=== PATIENT | female | born 1945 | race Hispanic/Latino ===

== ENCOUNTER 2018-03-26 07:07 | Inpatient (IN) | payer MEDICARE ==
[~2018-03-26] VITALS: Ht 91.4 cm; Wt 67.2 kg
[~2018-03-26 07:07] MED LIST: ACET-2900 PO; ACET325T51 PO; AMLO10TA6 PO; ASPI-1005 PO; ASPI-1197 PO; ATOR10 PO; ATOR20TA PO; BIMA12.5OS OU; CLOP75TA32 PO; FLUC200T8 PO; FLUT16H NASAL; FLUT16H NS; FOLI0.8T2 PO; FOLI1CAP2 PO; GABA-529 PO; GABA-531 PO; LACT10SO8 PO; LACT10SO9 PO; LATA7.5D OP; LEVE500T19 PO; LEVE500T8 PO; LEVE750T51 PO; LISI-613 PO; Lactulose PO; MIDO10TA PO; NITR.4 SL; NITR0.4T50 SL; ONDA4TAB9 PO; PANT40TA PO; PANT40TA25 PO; PRED10TA23 PO; PRED10TA3 PO; SANTO TP; SERT50TA PO; SERT50TA12 PO; SEVE800T7 PO; TACR1CAP10 PO; TRAZ-185 PO; XALA2.5OS OD
[2018-03-26] MEDS ORDERED: IPRATROPIUM/ALBUTEROL SULFATE 3 ML SOLUTION IH ONE (07:25)
[2018-03-26 07:27] LABS: BASOPHILS % (AUTO) 0.6 % (0.0-5.0); EOSINOPHILS % (AUTO) 0.4 % (0.0-8.0); HEMATOCRIT 27.4 % (36-48); LYMPHOCYTES % (AUTO) 18.1 % (21.0-51.0); MEAN CORPUSCULAR HEMOGLOBIN 31.2 pg (27.0-33.0); MEAN CORPUSCULAR HGB CONC 32.4 g/dL (32.0-36.0); MEAN CORPUSCULAR VOLUME 96.2 fL (79-99); MONOCYTES % (AUTO) 4.9 % (3.0-13.0); PLATELET COUNT (AUTO) 173 K/uL (130-400); RED BLOOD CELL COUNT(AUTO) 2.85 MIL/uL (4.00-5.50); RED CELL DISTRIBUTION WIDTH 15.5 % (11.0-15.5); WHITE BLOOD COUNT (AUTO) 6.4 K/uL (4.8-10.8)
[2018-03-26 07:35] LABS: CREATININE 7.2 mg/dL (0.5-1.5); POTASSIUM 5.1 mmol/L (3.5-5.1)
[2018-03-26 07:51] LABS: ALBUMIN 2.5 g/dL (3.5-5.0); BILIRUBIN,TOTAL 0.6 mg/dL (0.2-1.0); CREATINE KINASE MB 0.9 ng/mL (0.5-3.6); TOTAL PROTEIN, SERUM 6.5 g/dL (6.0-8.3)
[2018-03-26] MEDS ORDERED: MIDODRINE HCL 5 MG TABLET ONE ×2 (09:09→16:37)
[2018-03-26] MEDS ORDERED: ACETAMINOPHEN 325 MG TAB ONE (09:11)
[2018-03-26] MEDS ORDERED: VANCOMYCIN 1.5 GM in SODIUM CHLORIDE 0.9% 250 ML IV SCH (09:15)
[2018-03-26 09:40] VITALS: BP 74/41
[2018-03-26] MEDS ORDERED: VANCOMYCIN PROTOCOL PER PHARMACY IV SCH (09:45)
[2018-03-26] MEDS: LEVOFLOXACIN 500 MG/D5W 100 ML 100 ML IV SCH (10:59)
[2018-03-26 12:00] VITALS: BP 82/43
[2018-03-26] MEDS ORDERED: 0.9% SODIUM CHLORIDE 250 ML IV BAG IV PRN (12:30)
[2018-03-26] MEDS ORDERED: HEPARIN SODIUM 5000UNIT/ML 1ML VIAL IJ PRN (12:30)
[2018-03-26] MEDS ORDERED: ALBUMIN (HUMAN) 25% 100 ML IV PRN (12:30)
[2018-03-26] MEDS ORDERED: SODIUM CHLORIDE 0.9% 1000ML 1,000 ML IV PRN (12:30)
[2018-03-26] MEDS: HYDROCORTISONE SOD SUCCINATE 100 MG/2 ML VIAL IV SCH ×2 (15:11→21:07)
[2018-03-26] MEDS ORDERED: COMPOUND IV REFRIGERATED 1 EACH IVSOLN MISC PRN (15:15)
[2018-03-26] MEDS ORDERED: SEVE800T7 PO (15:41)
[2018-03-26] MEDS ORDERED: MIDO10TA PO ×2 (15:41)
[2018-03-26] MEDS ORDERED: LACT10SO9 PO (15:41)
[2018-03-26] MEDS ORDERED: GABA-529 PO (15:41)
[2018-03-26] MEDS ORDERED: [UNRECOGNIZED DRUG - CODE] PO (15:41)
[2018-03-26] MEDS ORDERED: ONDA4TAB7 PO (15:41)
[2018-03-26] MEDS ORDERED: LOPE2CAP PO (15:41)
[2018-03-26 16:00] VITALS: BP 91/31
[2018-03-26] MEDS ORDERED: NITROGLYCERIN 0.4 MG SL TAB SL PRN (16:00)
[2018-03-26] MEDS: ACETAMINOPHEN 325 MG TAB PO SCH ×2 (16:00→21:04)
[2018-03-26] MEDS ORDERED: LACTULOSE 20 GM/30 ML UDCUP PO PRN (16:00)
[2018-03-26] MEDS ORDERED: LOPERAMIDE HCL 2 MG CAP PO PRN (16:15)
[2018-03-26] MEDS ORDERED: ONDANSETRON ODT 4 MG TAB PO PRN (16:15)
[2018-03-26] MEDS: INSULIN HUMULIN R 100 UNIT/ML 3ML SQ SCH ×2 (16:30→20:57)
[2018-03-26] MEDS: SEVELAMER HCL 800 MG TABLET PO SCH (17:45)
[2018-03-26 19:36] VITALS: BP 91/56
[2018-03-26] MEDS: TRAZODONE HCL 50 MG TAB PO SCH (19:59)
[2018-03-26] MEDS ORDERED: EPOETIN ALFA 10,000 UNIT/ML VIAL SQ ONE (21:00)
[2018-03-26] MEDS ORDERED: MIDODRINE HCL 5 MG TABLET PO PRN (21:00)
[2018-03-26] MEDS: LATANOPROST 2.5 ML DROPS OP SCH (21:00)
[2018-03-26] MEDS ORDERED: MIDODRINE HCL 5 MG TABLET PO SCH (21:00)
[2018-03-26] MEDS: LEVETIRACETAM 500 MG TABLET PO SCH (21:04)
[2018-03-26] MEDS: ATORVASTATIN CALCIUM 10 MG TABLET PO SCH (21:04)
[2018-03-26] MEDS: TACROLIMUS 1 MG CAPSULE PO SCH (21:07)
[2018-03-26 23:42] VITALS: BP 115/55
[2018-03-27] MEDS: ONDANSETRON HCL MDV 20ML 2 MG/ML VIAL IVP PRN (02:28)
[2018-03-27 04:05] VITALS: BP 119/53
[2018-03-27 04:06] LABS: HEMATOCRIT 24.7 % (36-48); MEAN CORPUSCULAR HEMOGLOBIN 31.8 pg (27.0-33.0); MEAN CORPUSCULAR HGB CONC 33.3 g/dL (32.0-36.0); MEAN CORPUSCULAR VOLUME 95.5 fL (79-99); PLATELET COUNT (AUTO) 147 K/uL (130-400); RED BLOOD CELL COUNT(AUTO) 2.59 MIL/uL (4.00-5.50); RED CELL DISTRIBUTION WIDTH 15.5 % (11.0-15.5); WHITE BLOOD COUNT (AUTO) 4.3 K/uL (4.8-10.8)
[2018-03-27 04:24] LABS: BAND NEUTROPHILS % (MANUAL) 18 % (0-2); LYMPHOCYTES % (MANUAL) 14 % (22-44); MAN.DIFF COMMENT-IMPRESSION MANUAL DIFFERENTIAL; MONOCYTES % (MANUAL) 8 % (2-9); PLATELET MORPHOLOGY COMMENT ADEQUATE; SEGMENTED NEUTROPHILS % 60 % (40-70)
[2018-03-27 04:31] LABS: ALBUMIN 2.5 g/dL (3.5-5.0); BILIRUBIN,TOTAL 0.6 mg/dL (0.2-1.0); CREATININE 4.3 mg/dL (0.5-1.5); MAGNESIUM 1.9 mg/dL (1.80-2.40); PHOSPHORUS 3.5 mg/dL (2.5-4.9); POTASSIUM 4.4 mmol/L (3.5-5.1)
[2018-03-27] MEDS: HYDROCORTISONE SOD SUCCINATE 100 MG/2 ML VIAL IV SCH ×3 (04:59→20:44)
[2018-03-27] MEDS: ACETAMINOPHEN 325 MG TAB PO SCH ×4 (04:59→20:45)
[2018-03-27] MEDS: INSULIN HUMULIN R 100 UNIT/ML 3ML SQ SCH ×4 (06:42→20:54)
[2018-03-27 07:30] LABS: HEPATITIS Bs ANTIGEN SCREEN P Negative (Negative)
[2018-03-27 08:04] VITALS: BP 134/58
[2018-03-27] MEDS: [UNRECOGNIZED DRUG - OTHER] PO SCH (09:00)
[2018-03-27] MEDS: FLUTICASONE PROPIONATE 50MCG/SPRAY 16 GM BOTTLE NS SCH (09:00)
[2018-03-27] MEDS ORDERED: PANTOPRAZOLE SODIUM 40 MG TABLET.DR PO SCH (09:00)
[2018-03-27] MEDS: FOLIC ACID/VITAMIN B COMP W-C 1 MG CAPSULE PO SCH (10:46)
[2018-03-27] MEDS: SERTRALINE HCL 50 MG TABLET PO SCH (10:47)
[2018-03-27] MEDS: PREDNISONE 10 MG TABLET PO SCH (10:47)
[2018-03-27] MEDS: FLUCONAZOLE 100 MG TAB PO SCH (10:47)
[2018-03-27] MEDS: SEVELAMER HCL 800 MG TABLET PO SCH ×3 (10:47→17:00)
[2018-03-27] MEDS: LEVETIRACETAM 500 MG TABLET PO SCH ×2 (10:47→20:46)
[2018-03-27] MEDS: ASPIRIN 81MG TAB.CHEW PO SCH (10:47)
[2018-03-27] MEDS: CLOPIDOGREL BISULFATE 75 MG TAB PO SCH (10:47)
[2018-03-27] MEDS: PANTOPRAZOLE SODIUM 40 MG TABLET.DR PO SCH (10:47)
[2018-03-27] MEDS: TACROLIMUS 1 MG CAPSULE PO SCH ×2 (10:47→20:46)
[2018-03-27 12:02] VITALS: BP 116/52
[2018-03-27 16:02] VITALS: BP 147/70
[2018-03-27 20:02] VITALS: BP 118/55
[2018-03-27] MEDS: TRAZODONE HCL 50 MG TAB PO SCH (20:46)
[2018-03-27] MEDS: ATORVASTATIN CALCIUM 10 MG TABLET PO SCH (20:46)
[2018-03-27] MEDS: LATANOPROST 2.5 ML DROPS OP SCH (20:48)
[2018-03-27 23:55] VITALS: BP 138/49
[2018-03-28 03:39] VITALS: BP 154/58
[2018-03-28] MEDS: ACETAMINOPHEN 325 MG TAB PO SCH ×4 (03:51→21:49)
[2018-03-28] MEDS: INSULIN HUMULIN R 100 UNIT/ML 3ML SQ SCH ×4 (05:34→21:00)
[2018-03-28] MEDS: HYDROCORTISONE SOD SUCCINATE 100 MG/2 ML VIAL IV SCH ×3 (05:39→21:43)
[2018-03-28 07:56] VITALS: BP 101/32
[2018-03-28] MEDS: FLUTICASONE PROPIONATE 50MCG/SPRAY 16 GM BOTTLE NS SCH (09:00)
[2018-03-28] MEDS: [UNRECOGNIZED DRUG - OTHER] PO SCH (09:00)
[2018-03-28] MEDS ORDERED: GABAPENTIN 100 MG CAPSULE PO SCH (09:00)
[2018-03-28] MEDS: CLOPIDOGREL BISULFATE 75 MG TAB PO SCH (09:14)
[2018-03-28] MEDS: FLUCONAZOLE 100 MG TAB PO SCH (09:14)
[2018-03-28] MEDS: SERTRALINE HCL 50 MG TABLET PO SCH (09:14)
[2018-03-28] MEDS: ASPIRIN 81MG TAB.CHEW PO SCH (09:14)
[2018-03-28] MEDS: MIDODRINE HCL 5 MG TABLET PO SCH (09:14)
[2018-03-28] MEDS: FOLIC ACID/VITAMIN B COMP W-C 1 MG CAPSULE PO SCH (09:14)
[2018-03-28] MEDS: PANTOPRAZOLE SODIUM 40 MG TABLET.DR PO SCH (09:15)
[2018-03-28] MEDS: LEVOFLOXACIN 500 MG/D5W 100 ML 100 ML IV SCH (09:15)
[2018-03-28] MEDS: LEVETIRACETAM 500 MG TABLET PO SCH ×2 (09:15→21:43)
[2018-03-28] MEDS: PREDNISONE 10 MG TABLET PO SCH (09:15)
[2018-03-28] MEDS: TACROLIMUS 1 MG CAPSULE PO SCH ×2 (09:15→21:44)
[2018-03-28] MEDS: SEVELAMER HCL 800 MG TABLET PO SCH ×3 (09:15→16:24)
[2018-03-28 11:37] VITALS: BP 113/39
[2018-03-28 16:21] VITALS: BP 94/44
[2018-03-28 19:00] VITALS: BP 125/50
[2018-03-28] MEDS: LATANOPROST 2.5 ML DROPS OP SCH (21:00)
[2018-03-28] MEDS: TRAZODONE HCL 50 MG TAB PO SCH (21:43)
[2018-03-28] MEDS: GABAPENTIN 100 MG CAPSULE PO SCH (21:43)
[2018-03-28] MEDS: ATORVASTATIN CALCIUM 10 MG TABLET PO SCH (21:43)
[2018-03-28 23:00] VITALS: BP 138/61
[2018-03-29 03:00] VITALS: BP 134/55
[2018-03-29 04:00] LABS: MEAN CORPUSCULAR HEMOGLOBIN 31.4 pg (27.0-33.0); MEAN CORPUSCULAR HGB CONC 32.6 g/dL (32.0-36.0); MEAN CORPUSCULAR VOLUME 96.2 fL (79-99); NUCLEATED RED BLOOD CELLS 0.1 % (0.0-0.19); PLATELET COUNT (AUTO) 146 K/uL (130-400); RED CELL DISTRIBUTION WIDTH 15.8 % (11.0-15.5)
[2018-03-29 04:11] LABS: CREATININE 3.7 mg/dL (0.5-1.5); PHOSPHORUS 2.4 mg/dL (2.5-4.9); POTASSIUM 3.8 mmol/L (3.5-5.1)
[2018-03-29] MEDS: ACETAMINOPHEN 325 MG TAB PO SCH ×4 (04:40→21:27)
[2018-03-29] MEDS: HYDROCORTISONE SOD SUCCINATE 100 MG/2 ML VIAL IV SCH (06:05)
[2018-03-29] MEDS: INSULIN HUMULIN R 100 UNIT/ML 3ML SQ SCH ×4 (06:29→20:48)
[2018-03-29 07:45] VITALS: BP 131/56
[2018-03-29] MEDS: FLUTICASONE PROPIONATE 50MCG/SPRAY 16 GM BOTTLE NS SCH (09:00)
[2018-03-29] MEDS: [UNRECOGNIZED DRUG - OTHER] PO SCH (09:00)
[2018-03-29] MEDS: TACROLIMUS 1 MG CAPSULE PO SCH ×2 (09:38→21:28)
[2018-03-29] MEDS: FOLIC ACID/VITAMIN B COMP W-C 1 MG CAPSULE PO SCH (09:38)
[2018-03-29] MEDS: FLUCONAZOLE 100 MG TAB PO SCH (09:38)
[2018-03-29] MEDS: PANTOPRAZOLE SODIUM 40 MG TABLET.DR PO SCH (09:38)
[2018-03-29] MEDS: CLOPIDOGREL BISULFATE 75 MG TAB PO SCH (09:38)
[2018-03-29] MEDS: ASPIRIN 81MG TAB.CHEW PO SCH (09:38)
[2018-03-29] MEDS: LEVETIRACETAM 500 MG TABLET PO SCH ×2 (09:38→21:27)
[2018-03-29] MEDS: PREDNISONE 10 MG TABLET PO SCH (09:39)
[2018-03-29] MEDS: SERTRALINE HCL 50 MG TABLET PO SCH (09:39)
[2018-03-29] MEDS: SEVELAMER HCL 800 MG TABLET PO SCH ×2 (09:41→11:57)
[2018-03-29 11:12] VITALS: BP 140/62
[2018-03-29 16:38] VITALS: BP 118/73
[2018-03-29 19:55] VITALS: BP 111/47
[2018-03-29] MEDS: TRAZODONE HCL 50 MG TAB PO SCH (21:27)
[2018-03-29] MEDS: ATORVASTATIN CALCIUM 10 MG TABLET PO SCH (21:28)
[2018-03-29] MEDS: LATANOPROST 2.5 ML DROPS OP SCH (21:29)
[2018-03-29 23:35] VITALS: BP 105/51
[2018-03-30] MEDS: ACETAMINOPHEN 325 MG TAB PO SCH ×2 (03:07→10:00)
[2018-03-30 04:00] LABS: MEAN CORPUSCULAR HEMOGLOBIN 31.4 pg (27.0-33.0); MEAN CORPUSCULAR HGB CONC 32.8 g/dL (32.0-36.0); NUCLEATED RED BLOOD CELLS 0.3 % (0.0-0.19); PLATELET COUNT (AUTO) 142 K/uL (130-400); RED CELL DISTRIBUTION WIDTH 15.7 % (11.0-15.5); WHITE BLOOD COUNT (AUTO) 5.9 K/uL (4.8-10.8)
[2018-03-30 04:21] LABS: ALBUMIN 2.4 g/dL (3.5-5.0); BILIRUBIN,TOTAL 0.5 mg/dL (0.2-1.0); CREATININE 4.8 mg/dL (0.5-1.5); MAGNESIUM 1.9 mg/dL (1.80-2.40); PHOSPHORUS 0.9 mg/dL (2.5-4.9); POTASSIUM 3.6 mmol/L (3.5-5.1); TOTAL PROTEIN, SERUM 5.8 g/dL (6.0-8.3)
[2018-03-30 04:23] VITALS: BP 106/52
[2018-03-30] MEDS: ONDANSETRON HCL MDV 20ML 2 MG/ML VIAL IVP PRN (05:48)
[2018-03-30 07:54] VITALS: BP 84/36
[2018-03-30] MEDS: SERTRALINE HCL 50 MG TABLET PO SCH (09:00)
[2018-03-30] MEDS: ASPIRIN 81MG TAB.CHEW PO SCH (09:00)
[2018-03-30] MEDS: LEVETIRACETAM 500 MG TABLET PO SCH ×2 (09:00→20:41)
[2018-03-30] MEDS: [UNRECOGNIZED DRUG - OTHER] PO SCH (09:00)
[2018-03-30] MEDS: PANTOPRAZOLE SODIUM 40 MG TABLET.DR PO SCH (09:00)
[2018-03-30] MEDS: FOLIC ACID/VITAMIN B COMP W-C 1 MG CAPSULE PO SCH (09:00)
[2018-03-30] MEDS: FLUTICASONE PROPIONATE 50MCG/SPRAY 16 GM BOTTLE NS SCH (09:00)
[2018-03-30] MEDS: CLOPIDOGREL BISULFATE 75 MG TAB PO SCH (09:00)
[2018-03-30] MEDS: PREDNISONE 10 MG TABLET PO SCH (09:00)
[2018-03-30] MEDS: TACROLIMUS 1 MG CAPSULE PO SCH ×2 (09:00→20:40)
[2018-03-30] MEDS: FLUCONAZOLE 100 MG TAB PO SCH (09:00)
[2018-03-30] MEDS: LEVOFLOXACIN 500 MG/D5W 100 ML 100 ML IV SCH (10:00)
[2018-03-30 10:01] VITALS: BP 83/55
[2018-03-30 11:08] VITALS: BP 104/42
[2018-03-30] MEDS ORDERED: HYDROCORTISONE SOD SUCCINATE 100 MG/2 ML VIAL ONE (11:11)
[2018-03-30] MEDS: HYDROCORTISONE SOD SUCCINATE 100 MG/2 ML VIAL IV SCH ×2 (11:23→20:40)
[2018-03-30] MEDS: INSULIN HUMULIN R 100 UNIT/ML 3ML SQ SCH ×3 (11:30→22:55)
[2018-03-30] MEDS ORDERED: GENTAMICIN 80 MG/NS 100 ML PB 100 ML IV ONE (12:25)
[2018-03-30 16:18] VITALS: BP 107/43
[2018-03-30 19:37] VITALS: BP 82/40
[2018-03-30] MEDS: ATORVASTATIN CALCIUM 10 MG TABLET PO SCH (20:40)
[2018-03-30] MEDS: LATANOPROST 2.5 ML DROPS OP SCH (21:00)
[2018-03-30] MEDS: EPOETIN ALFA 10,000 UNIT/ML VIAL SQ SCH (21:00)
[2018-03-30] MEDS: TRAZODONE HCL 50 MG TAB PO SCH (23:48)
[2018-03-31] VITALS (7 sets, daily range): BP systolic 91–148; BP diastolic 37–68
[2018-03-31] MEDS: HYDROCORTISONE SOD SUCCINATE 100 MG/2 ML VIAL IV SCH ×3 (03:07→20:34)
[2018-03-31 04:01] LABS: HEMATOCRIT 26.7 % (36-48); MEAN CORPUSCULAR HEMOGLOBIN 30.4 pg (27.0-33.0); MEAN CORPUSCULAR HGB CONC 31.8 g/dL (32.0-36.0); MEAN CORPUSCULAR VOLUME 95.5 fL (79-99); NUCLEATED RED BLOOD CELLS 0.2 % (0.0-0.19); PLATELET COUNT (AUTO) 135 K/uL (130-400); RED BLOOD CELL COUNT(AUTO) 2.79 MIL/uL (4.00-5.50); RED CELL DISTRIBUTION WIDTH 16.7 % (11.0-15.5); WHITE BLOOD COUNT (AUTO) 9.7 K/uL (4.8-10.8)
[2018-03-31 04:11] LABS: CREATININE 5.7 mg/dL (0.5-1.5); PHOSPHORUS 1.7 mg/dL (2.5-4.9); POTASSIUM 4.5 mmol/L (3.5-5.1)
[2018-03-31] MEDS: INSULIN HUMULIN R 100 UNIT/ML 3ML SQ SCH ×4 (06:29→22:08)
[2018-03-31] MEDS: FLUTICASONE PROPIONATE 50MCG/SPRAY 16 GM BOTTLE NS SCH (09:00)
[2018-03-31] MEDS: [UNRECOGNIZED DRUG - OTHER] PO SCH (09:00)
[2018-03-31] MEDS: PANTOPRAZOLE SODIUM 40 MG TABLET.DR PO SCH (09:56)
[2018-03-31] MEDS: MIDODRINE HCL 5 MG TABLET PO SCH (09:56)
[2018-03-31] MEDS: ASPIRIN 81MG TAB.CHEW PO SCH (09:56)
[2018-03-31] MEDS: FLUCONAZOLE 100 MG TAB PO SCH (09:56)
[2018-03-31] MEDS: SERTRALINE HCL 50 MG TABLET PO SCH (09:56)
[2018-03-31] MEDS: FOLIC ACID/VITAMIN B COMP W-C 1 MG CAPSULE PO SCH (09:57)
[2018-03-31] MEDS: TACROLIMUS 1 MG CAPSULE PO SCH ×2 (09:57→20:33)
[2018-03-31] MEDS: LEVETIRACETAM 500 MG TABLET PO SCH ×2 (09:57→20:34)
[2018-03-31] MEDS: CLOPIDOGREL BISULFATE 75 MG TAB PO SCH (09:57)
[2018-03-31] MEDS ORDERED: VANCOMYCIN 1.5 GM in SODIUM CHLORIDE 0.9% 250 ML IV ONE (10:00)
[2018-03-31] MEDS: CEFEPIME HCL 1 GM VIAL IVP SCH (12:03)
[2018-03-31] MEDS: ACETAMINOPHEN 325 MG TAB PO PRN (18:13)
[2018-03-31] MEDS: ATORVASTATIN CALCIUM 10 MG TABLET PO SCH (20:33)
[2018-03-31] MEDS: TRAZODONE HCL 50 MG TAB PO SCH (20:34)
[2018-03-31] MEDS: GABAPENTIN 100 MG CAPSULE PO SCH (20:34)
[2018-03-31] MEDS: EPOETIN ALFA 10,000 UNIT/ML VIAL SQ SCH (21:00)
[2018-03-31] MEDS: LATANOPROST 2.5 ML DROPS OP SCH (21:37)
[2018-04-01] MEDS: HYDROCORTISONE SOD SUCCINATE 100 MG/2 ML VIAL IV SCH ×3 (03:17→22:17)
[2018-04-01 03:52] VITALS: BP 141/68
[2018-04-01 03:56] LABS: HEMATOCRIT 26.7 % (36-48); MEAN CORPUSCULAR HEMOGLOBIN 31.1 pg (27.0-33.0); MEAN CORPUSCULAR HGB CONC 32.2 g/dL (32.0-36.0); MEAN CORPUSCULAR VOLUME 96.6 fL (79-99); NUCLEATED RED BLOOD CELLS 0.1 % (0.0-0.19); PLATELET COUNT (AUTO) 140 K/uL (130-400); RED BLOOD CELL COUNT(AUTO) 2.77 MIL/uL (4.00-5.50); RED CELL DISTRIBUTION WIDTH 16.3 % (11.0-15.5); WHITE BLOOD COUNT (AUTO) 12.2 K/uL (4.8-10.8)
[2018-04-01 04:11] LABS: CREATININE 3.5 mg/dL (0.5-1.5); POTASSIUM 3.9 mmol/L (3.5-5.1)
[2018-04-01] MEDS: INSULIN HUMULIN R 100 UNIT/ML 3ML SQ SCH ×5 (06:20→22:30)
[2018-04-01 08:37] VITALS: BP 141/57
[2018-04-01] MEDS: FLUTICASONE PROPIONATE 50MCG/SPRAY 16 GM BOTTLE NS SCH (09:00)
[2018-04-01] MEDS: [UNRECOGNIZED DRUG - OTHER] PO SCH (09:00)
[2018-04-01] MEDS: TACROLIMUS 1 MG CAPSULE PO SCH ×2 (09:08→22:18)
[2018-04-01] MEDS: CLOPIDOGREL BISULFATE 75 MG TAB PO SCH (09:08)
[2018-04-01] MEDS: SERTRALINE HCL 50 MG TABLET PO SCH (09:08)
[2018-04-01] MEDS: FOLIC ACID/VITAMIN B COMP W-C 1 MG CAPSULE PO SCH (09:08)
[2018-04-01] MEDS: FLUCONAZOLE 100 MG TAB PO SCH (09:08)
[2018-04-01] MEDS: LEVETIRACETAM 500 MG TABLET PO SCH ×2 (09:08→22:16)
[2018-04-01] MEDS: ASPIRIN 81MG TAB.CHEW PO SCH (09:08)
[2018-04-01] MEDS: LEVOFLOXACIN 500 MG/D5W 100 ML 100 ML IV SCH (09:08)
[2018-04-01] MEDS: PANTOPRAZOLE SODIUM 40 MG TABLET.DR PO SCH (09:08)
[2018-04-01] MEDS: CEFEPIME HCL 1 GM VIAL IVP SCH (09:09)
[2018-04-01 11:28] VITALS: BP 125/45
[2018-04-01 16:06] VITALS: BP 137/55
[2018-04-01 19:51] VITALS: BP 140/57
[2018-04-01] MEDS: LATANOPROST 2.5 ML DROPS OP SCH (21:00)
[2018-04-01] MEDS: TRAZODONE HCL 50 MG TAB PO SCH (22:16)
[2018-04-01] MEDS: ATORVASTATIN CALCIUM 10 MG TABLET PO SCH (22:16)
[2018-04-01] MEDS: ACETAMINOPHEN 325 MG TAB PO PRN (22:20)
[2018-04-01 23:04] VITALS: BP 113/46
[2018-04-02 03:03] VITALS: BP 126/52
[2018-04-02 03:52] LABS: HEMATOCRIT 26.2 % (36-48); MEAN CORPUSCULAR HEMOGLOBIN 30.3 pg (27.0-33.0); MEAN CORPUSCULAR HGB CONC 31.7 g/dL (32.0-36.0); MEAN CORPUSCULAR VOLUME 95.4 fL (79-99); NUCLEATED RED BLOOD CELLS 0.1 % (0.0-0.19); PLATELET COUNT (AUTO) 97 K/uL (130-400); RED BLOOD CELL COUNT(AUTO) 2.74 MIL/uL (4.00-5.50); RED CELL DISTRIBUTION WIDTH 16.4 % (11.0-15.5); WHITE BLOOD COUNT (AUTO) 11.2 K/uL (4.8-10.8)
[2018-04-02 04:13] LABS: CREATININE 4.4 mg/dL (0.5-1.5); POTASSIUM 4.8 mmol/L (3.5-5.1)
[2018-04-02] MEDS: HYDROCORTISONE SOD SUCCINATE 100 MG/2 ML VIAL IV SCH ×3 (04:36→21:29)
[2018-04-02] MEDS: INSULIN HUMULIN R 100 UNIT/ML 3ML SQ SCH ×4 (06:12→21:00)
[2018-04-02 08:24] VITALS: BP 137/67
[2018-04-02] MEDS: MIDODRINE HCL 5 MG TABLET PO SCH (09:00)
[2018-04-02] MEDS: SERTRALINE HCL 50 MG TABLET PO SCH (09:00)
[2018-04-02] MEDS: [UNRECOGNIZED DRUG - OTHER] PO SCH (09:00)
[2018-04-02] MEDS ORDERED: VANCOMYCIN 1GM+NS 250ML 250 ML IV SCH (09:00)
[2018-04-02] MEDS: FLUCONAZOLE 100 MG TAB PO SCH (09:00)
[2018-04-02] MEDS: PANTOPRAZOLE SODIUM 40 MG TABLET.DR PO SCH (09:00)
[2018-04-02] MEDS: FOLIC ACID/VITAMIN B COMP W-C 1 MG CAPSULE PO SCH (09:00)
[2018-04-02] MEDS: CLOPIDOGREL BISULFATE 75 MG TAB PO SCH (09:00)
[2018-04-02] MEDS: ASPIRIN 81MG TAB.CHEW PO SCH (09:00)
[2018-04-02] MEDS: LEVETIRACETAM 500 MG TABLET PO SCH ×2 (09:00→21:29)
[2018-04-02] MEDS: TACROLIMUS 1 MG CAPSULE PO SCH ×2 (09:00→21:29)
[2018-04-02] MEDS: CEFEPIME HCL 1 GM VIAL IVP SCH (09:00)
[2018-04-02] MEDS: FLUTICASONE PROPIONATE 50MCG/SPRAY 16 GM BOTTLE NS SCH (10:10)
[2018-04-02 12:00] VITALS: BP 137/57
[2018-04-02] MEDS ORDERED: EPOETIN ALFA 10,000 UNIT/ML VIAL SQ SCH (14:24)
[2018-04-02 16:00] VITALS: BP 95/41
[2018-04-02] MEDS: VANCOMYCIN 1GM+NS 250ML 250 ML IV SCH (18:14)
[2018-04-02 19:17] VITALS: BP 121/46
[2018-04-02] MEDS: ATORVASTATIN CALCIUM 10 MG TABLET PO SCH (21:30)
[2018-04-02] MEDS: GABAPENTIN 100 MG CAPSULE PO SCH (21:30)
[2018-04-02] MEDS: TRAZODONE HCL 50 MG TAB PO SCH (21:34)
[2018-04-02] MEDS: LATANOPROST 2.5 ML DROPS OP SCH (21:42)
[2018-04-02 22:58] VITALS: BP 121/50
[2018-04-03 03:27] VITALS: BP 149/61
[2018-04-03 04:01] LABS: HEMATOCRIT 26.5 % (36-48); MEAN CORPUSCULAR HEMOGLOBIN 30.5 pg (27.0-33.0); MEAN CORPUSCULAR HGB CONC 31.7 g/dL (32.0-36.0); MEAN CORPUSCULAR VOLUME 96.1 fL (79-99); PLATELET COUNT (AUTO) 106 K/uL (130-400); RED BLOOD CELL COUNT(AUTO) 2.76 MIL/uL (4.00-5.50); RED CELL DISTRIBUTION WIDTH 16.4 % (11.0-15.5)
[2018-04-03 04:12] LABS: ALBUMIN 2.1 g/dL (3.5-5.0); BILIRUBIN,TOTAL 0.5 mg/dL (0.2-1.0); CREATININE 2.8 mg/dL (0.5-1.5); MAGNESIUM 1.9 mg/dL (1.80-2.40); POTASSIUM 4.5 mmol/L (3.5-5.1); TOTAL PROTEIN, SERUM 5.3 g/dL (6.0-8.3)
[2018-04-03] MEDS: HYDROCORTISONE SOD SUCCINATE 100 MG/2 ML VIAL IV SCH ×3 (04:55→20:59)
[2018-04-03] MEDS: INSULIN HUMULIN R 100 UNIT/ML 3ML SQ SCH ×4 (06:25→21:00)
[2018-04-03 08:00] VITALS: BP 153/59
[2018-04-03] MEDS: ACETAMINOPHEN 325 MG TAB PO PRN (08:06)
[2018-04-03] MEDS: [UNRECOGNIZED DRUG - OTHER] PO SCH (09:00)
[2018-04-03] MEDS: FLUTICASONE PROPIONATE 50MCG/SPRAY 16 GM BOTTLE NS SCH (09:00)
[2018-04-03] MEDS: PANTOPRAZOLE SODIUM 40 MG TABLET.DR PO SCH (09:26)
[2018-04-03] MEDS: LEVETIRACETAM 500 MG TABLET PO SCH ×2 (09:26→20:59)
[2018-04-03] MEDS: CEFEPIME HCL 1 GM VIAL IVP SCH (09:26)
[2018-04-03] MEDS: TACROLIMUS 1 MG CAPSULE PO SCH ×2 (09:27→20:58)
[2018-04-03] MEDS: FLUCONAZOLE 100 MG TAB PO SCH (09:27)
[2018-04-03] MEDS: FOLIC ACID/VITAMIN B COMP W-C 1 MG CAPSULE PO SCH (09:27)
[2018-04-03] MEDS: ASPIRIN 81MG TAB.CHEW PO SCH (09:27)
[2018-04-03] MEDS: CLOPIDOGREL BISULFATE 75 MG TAB PO SCH (09:27)
[2018-04-03] MEDS: SERTRALINE HCL 50 MG TABLET PO SCH (09:28)
[2018-04-03] MEDS: LEVOFLOXACIN 500 MG/D5W 100 ML 100 ML IV SCH (09:38)
[2018-04-03 12:00] VITALS: BP 133/59
[2018-04-03 16:00] VITALS: BP 149/63
[2018-04-03 19:29] VITALS: BP 155/61
[2018-04-03] MEDS: ATORVASTATIN CALCIUM 10 MG TABLET PO SCH (20:59)
[2018-04-03] MEDS: TRAZODONE HCL 50 MG TAB PO SCH (20:59)
[2018-04-03] MEDS: LATANOPROST 2.5 ML DROPS OP SCH (21:00)
[2018-04-03 23:38] VITALS: BP 130/61
[2018-04-04 04:04] VITALS: BP 117/78
[2018-04-04] MEDS: HYDROCORTISONE SOD SUCCINATE 100 MG/2 ML VIAL IV SCH ×2 (04:06→13:45)
[2018-04-04 04:08] VITALS: BP 128/53
[2018-04-04] MEDS: INSULIN HUMULIN R 100 UNIT/ML 3ML SQ SCH ×3 (05:22→16:30)
[2018-04-04 07:00] VITALS: BP 147/73
[2018-04-04] MEDS: CEFEPIME HCL 1 GM VIAL IVP SCH (08:41)
[2018-04-04] MEDS: FLUCONAZOLE 100 MG TAB PO SCH (08:42)
[2018-04-04] MEDS: LEVETIRACETAM 500 MG TABLET PO SCH (08:42)
[2018-04-04] MEDS: TACROLIMUS 1 MG CAPSULE PO SCH (08:42)
[2018-04-04] MEDS: SERTRALINE HCL 50 MG TABLET PO SCH (08:42)
[2018-04-04] MEDS: MIDODRINE HCL 5 MG TABLET PO SCH (08:42)
[2018-04-04] MEDS: ASPIRIN 81MG TAB.CHEW PO SCH (08:42)
[2018-04-04] MEDS: PANTOPRAZOLE SODIUM 40 MG TABLET.DR PO SCH (08:42)
[2018-04-04] MEDS: FOLIC ACID/VITAMIN B COMP W-C 1 MG CAPSULE PO SCH (08:42)
[2018-04-04] MEDS: [UNRECOGNIZED DRUG - OTHER] PO SCH (08:43)
[2018-04-04] MEDS ORDERED: CEFE1VIA11 IVP (10:50)
[2018-04-04 11:00] VITALS: BP 128/54
[2018-04-04] MEDS: FLUTICASONE PROPIONATE 50MCG/SPRAY 16 GM BOTTLE NS SCH (13:45)
[2018-04-04] MEDS: CLOPIDOGREL BISULFATE 75 MG TAB PO SCH (13:45)
[2018-04-04 16:00] VITALS: BP 141/44
[2018-04-04] MEDS: VANCOMYCIN 1GM+NS 250ML 250 ML IV SCH (16:10)
== END 2018-04-04 18:10 | DRG 871 ==
LOC: EDH 07:07 → EDHIP 08:58 → 2DH 09:28
PROVIDERS: ADMIT Internal Medicine Nephrology; ATTEND Internal Medicine Nephrology
PROC: 5A1D70Z Performance of Urinary Filtration, Intermittent, Less than 6 Hours Per Day (ICD-10-PCS; 2018-03-26)
PROC: 5A1D70Z Performance of Urinary Filtration, Intermittent, Less than 6 Hours Per Day (ICD-10-PCS; 2018-03-27)
PROC: 5A1D70Z Performance of Urinary Filtration, Intermittent, Less than 6 Hours Per Day (ICD-10-PCS; 2018-03-28)
PROC: 5A1D70Z Performance of Urinary Filtration, Intermittent, Less than 6 Hours Per Day (ICD-10-PCS; 2018-03-31)
PROC: 5A1D70Z Performance of Urinary Filtration, Intermittent, Less than 6 Hours Per Day (ICD-10-PCS; 2018-04-02)
PROC: 5A1D70Z Performance of Urinary Filtration, Intermittent, Less than 6 Hours Per Day (ICD-10-PCS; principal; 2018-04-04)
DX: A41.9 Sepsis, unspecified organism (principal); N18.6 End stage renal disease; R65.21 Severe sepsis with septic shock; J18.9 Pneumonia, unspecified organism; B49 Unspecified mycosis; I12.0 Hypertensive chronic kidney disease with stage 5 chronic kidney disease or end stage renal disease; Z94.4 Liver transplant status; E11.21 Type 2 diabetes mellitus with diabetic nephropathy; D64.9 Anemia, unspecified; K74.60 Unspecified cirrhosis of liver; E11.22 Type 2 diabetes mellitus with diabetic chronic kidney disease; E11.51 Type 2 diabetes mellitus with diabetic peripheral angiopathy without gangrene; F41.9 Anxiety disorder, unspecified; Z99.2 Dependence on renal dialysis; Z88.1 Allergy status to other antibiotic agents; Z88.0 Allergy status to penicillin; Z88.2 Allergy status to sulfonamides; Z90.49 Acquired absence of other specified parts of digestive tract; Z89.512 Acquired absence of left leg below knee; Z89.511 Acquired absence of right leg below knee; Z86.61 Personal history of infections of the central nervous system; Z79.52 Long term (current) use of systemic steroids
CPT/HCPCS: 36415; 71045; 80048; 80053; 80197; 82533; 82550; 82553; 82948; 83605; 83735; 83880; 84100; 84484; 85025; 85027; 86706; 87040; 87070; 87076; 87340; 87520; 90935; 93005; 93306; 94640; 94760; 97039; A4218; A4606; A6250; J0692; J0885; J1580; J1644; J1720; J1815; J1956; J3370; J7030; J7507; J7512; P9046